=== PATIENT | female | born 1975 | race Caucasian/White ===

== ENCOUNTER 2024-09-27 09:01 | Outpatient (AMB) | payer BC, SELFPAY ==
--- OUTSIDE RECORDS SUMMARY | 2024-09-27 09:21 | XMS_ITS | Patient Health Record ---
Author Organization [facility] Address [address] [place] [id number] Care Team Providers Care Claim Benefit Specialist Name Role Phone GailabigailKeli Primary Care Provider Pepe Rosado [phone] Allergies No Known Allergies Reason For Referral No Information Social History Tobacco Use: Social History Observation Description Date Details (start date - stop date) Never Smoker NA - NA Tobacco Use/Smoking Question Answer Notes Patient is a nonsmoker Alcohol Screen Question Answer Notes Did you have a drink contain ing alcohol in the past year? Yes How often did you have a dri nk containing alcohol in the past year? 2 to 3 times a week (3 points) How many drinks did you have on a typical day when you were drinking in the past year? 3 or 4 drinks (1 point) Points 4 Interpretation Positive Section Notes: Nonsmoker; no sig alcohol Problems Problem Type SNOMED Code ICD Code Onset Dates Problem Status W/U Status Risk Notes Problem Colon cancer screening (553773962) Colon cancer screening (Z12.11) Active confirmed Problem Pre-procedure evaluation check (938118805) Encounter for other preprocedural examination (Z01.818) Active confirmed Problem Irritable bowel syndrome (80524203) IBS (irritable bowel syndrome) (K58.9) Active confirmed Vital Signs Blood pressure diastolic 00 mm Hg 02/16/2024 Height 5 ft 7 in in 02/16/2024 Blood pressure systolic 00 mm Hg 02/16/2024 Weight 203 lbs 02/16/2024 BMI 31.79 kg/m2 02/16/2024 Encounters Encounter Location Date Provider Diagnosis [facility] [address] [place] [address] 02/16/2024 Pepe Mitchell Colon cancer screeni ng Z12.11 ; IBS (irritable bowel syndrome) K58.9 and Encounter for other preprocedural examination Z01.818 [facility] [address] [place] [address] 06/07/2024 Pepe Mitchell Assessments Encounter Date Diagnosis (ICD Code) Assessment Notes Treatment Notes Treatment Clinical Notes Section Notes 02/16/2024 Colon cancer screening (ICD-10 - Z12.11) Overall, Dilan appears quite well. I did recommend a colonoscopy for screening purposes given her age and good clinical appearance. We did review the rationale for this in regard to colon cancer prevention. Full consent was obtained for this, including risks of bleeding and perforation. The procedure will be done with monitored anesthesia care. We did review her irregular bowel movements and history of irritable bowel syndrome. I did recommend that she begin a regimen of 2 Metamucil fiber pills with a lot of water at least once or twice a day to see if that can help improve her bowel movement regularity. I shall also check laboratories for celiac disease given her long-standing history of the irregular bowel movements. I will also obtain colon biopsies to rule out microscopic colitis as well. Dilan was comfortable with this plan. Thank you again for allowing me to participate in Dilan's care. I shall continue to keep you advised of her progress. 02/16/2024 IBS (irritable bowel syndrome) (ICD-10 - K58.9) Try using 2 Metamucil fiber pills with a big glass of water once or twice a day for the IBS and irregular BM's Overall, Dilan appears quite well. I did recommend a colonoscopy for screening purposes given her age and good clinical appearance. We did review the rationale for this in regard to colon cancer prevention. Full consent was obtained for this, including risks of bleeding and perforation. The procedure will be done with monitored anesthesia care. We did review her irregular bowel movements and history of irritable bowel syndrome. I did recommend that she begin a regimen of 2 Metamucil fiber pills with a lot of water at least once or twice a day to see if that can help improve her bowel movement regularity. I shall also check laboratories for celiac disease given her long-standing history of the irregular bowel movements. I will also obtain colon biopsies to rule out microscopic colitis as well. Dilan was comfortable with this plan. Thank you again for allowing me to participate in Dilan's care. I shall continue to keep you advised of her progress. 02/16/2024 Encounter for other preprocedural examination (ICD-10 - Z01.818) Overall, Dilan appears quite well. I did recommend a colonoscopy for screening purposes given her age and good clinical appearance. We did review the rationale for this in regard to colon cancer prevention. Full consent was obtained for this, including risks of bleeding and perforation. The procedure will be done with monitored anesthesia care. We did review her irregular bowel movements and history of irritable bowel syndrome. I did recommend that she begin a regimen of 2 Metamucil fiber pills with a lot of water at least once or twice a day to see if that can help improve her bowel movement regularity. I shall also check laboratories for celiac disease given her long-standing history of the irregular bowel movements. I will also obtain colon biopsies to rule out microscopic colitis as well. Dilan was comfortable with this plan. Thank you again for allowing me to participate in Dilan's care. I shall continue to keep you advised of her progress. Plan Of Treatment Pending Test Test Name Order Date CELIAC PANEL #10 02/16/2024 Future Test Test Name Order Date COLONOSCOPY 02/16/2024 Insurance Providers Payer Name Payer Address Payer Phone Subscriber Number Group Number Insured Name Patient Relationship to Insured Coverage Start Date Coverage End Date [employer] [address] [place] [address] [id number] DILAN HARP Self - patient is the insured Medical (General) History Medical History History ICD Code Denies [place],DM,CVA,Lung disease,renal dise ase IBS--she describes having un dergone a negative flexible sigmoidoscopy in the Surgical History Surgery Date(Month/Year) 3 hernia surgeries--3 Umbilical hernia Carpal tunnel on the right Tubal ligation Endometrial biopsy 02/15/20242024-planned surgery for rem oval of both Fallopian tubes and uterine ablation
--- NOTE | 2024-09-27 09:22 | MHC.OFFWIV ---
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 Pt Tripped and fell down couple of stairs at home yesterday - she landed on her Back and right Ankle/foot got twisted. Reports pain with walking, standing and bending. Denies LOC or hitting head. [facility] Medical History (Updated 09/27/24 @ 10:14 by Sarah Sadler NP) Lumbago with sciatica, right side Muscle strain of right ankle History of endometrial biopsy IBS (irritable bowel syndrome) Hx of sigmoidoscopy Surgical History (Updated 06/06/24 @ 14:13 by Mi Babcock RN) Hx of umbilical hernia repair History of carpal tunnel surgery of right wrist H/O tubal ligation Social History (System 08/11/23 @ 10:04 by Jen Tanner) Patient Tobacco Use Status: Former Tobacco user Patient : No Review of Systems Const All systems reviewed & are unremarkable except as noted in HPI and below Physical Exam Vital Signs: Last Vital Signs Temp 98.0 F 09/27/24 09:24 Pulse 80 09/27/24 09:24 BP 148/100 H 09/27/24 09:24 Pulse Ox 98 09/27/24 09:24 Oxygen Delivery Method Room Air 09/27/24 09:24 BMI result Body Mass Index 31.2 Const General: no acute distress; No comfortable Nutritional Appearance: overweight Orientation/consciousness: patient oriented x3 Back/Spine/Pelvis Back: back tenderness Thoracic/Lumbar Spine: pain with thoraco-lumbar ROM and lumbar spinal tenderness Neuro General: patient oriented x3, gait normal and moves all extremities Psych Speech and movement: Normal speech and movement present Assessment & Plan Assessment & Plan (1) Muscle strain of right ankle: Code(s): S96.911A - Strain of unspecified muscle and tendon at ankle and foot level, right foot, initial encounter Qualifiers: Encounter type: initial encounter Qualified Code(s): S96.911A - Strain of unspecified muscle and tendon at ankle and foot level, right foot, initial encounter Plan: Sprain vs Strain Ankle NSAIDs and Acetaminophen for pain relief. Ice/Hot Elevate the joint Wrapped the Ankle with Shantanu Bandage. (2) Lumbago with sciatica, right side: Code(s): M54.41 - Lumbago with sciatica, right side Qualifiers: Back pain laterality: right Chronicity: acute Qualified Code(s): M54.41 - Lumbago with sciatica, right side Plan: Lower back Muscle STrain/Sprain Ice/hot NSAIDs for pain relief Medications: New ibuprofen 800 mg PO Q8H 30 tabs 0RF M54.41 - Lumbago with sciatica, right side, S96.911A - Strain of unspecified muscle and tendon at ankle and foot level, right foot, initial encounter cyclobenzaprine 10 mg PO TID 30 tabs 0RF 14 days M54.41 - Lumbago with sciatica, right side, S96.911A - Strain of unspecified muscle and tendon at ankle and foot level, right foot, initial encounter Coding Level of Care Code New Pt Level 4 (34467) Diagnoses Muscle strain of right ankle, initial encounter S96.911A Encounter type: initial encounter Acute right-sided low back pain with right-sided sciatica M54.41 Back pain laterality: right Chronicity: acute Time Spent (min) 20
[2024-09-27 09:24] VITALS: BP 148/100; PULSE 80; TEMP 36.7; O2SAT 98; BMI 31.2
== END 2024-09-27 10:29 | disposition home or self-care (01) ==
PROVIDERS: PCP Internal Medicine; Visit Provider Nurse Practitioner Family
DX: S96.911A Strain of unspecified muscle and tendon at ankle and foot level, right foot, initial encounter (principal); M54.41 Lumbago with sciatica, right side

== ENCOUNTER 2025-01-22 07:58 | Outpatient (AMB) | payer BC, SELFPAY ==
[2025-01-22 07:59] VITALS: BP 130/88; PULSE 84; TEMP 36.6; O2SAT 99; BMI 29.0
--- NOTE | 2025-01-22 07:59 | AM.OFFWIN_ITS ---
Intake Vital Signs 01/22/25 07:59 Height 5 ft 7 in Weight 185 lb BMI 29.0 BP 130/88 Blood Pressure Location Rt brachial Position Sitting Pulse 84 Pulse Source Pulse Oximeter Temp 98 F Temp Source Oral Pulse Oximetry (%) 99 Oxygen Delivery Method Room Air Intake Visit Reasons: EP Nausea, Vomiting, Diarrhea Intake Note: Patient presents c/o stomach cramps, nausea, vomiting (alessio colored), unable to keep anything down x5 days. Patient Tobacco Use Status: Former Tobacco user Allergies No Known Allergies Allergy (Verified 01/22/25 08:53) Do you need a note to return to daycare/school/sports/work: No HPI HPI Comments History of Present Illness Details History of Present Illness - The patient is a 49-year-old female pr esenting with symptoms of nausea, vomiting, dizziness, and weakness. - Symptoms began on and have pe rsisted, with the patient unable to keep anything down, including water. - Reports severe nausea, dizziness, vomi ting, and diarrhea with no known exposure to sick individuals. - She has body aches and chills. - She feels weak and is unable to eat or drink. - No fever, cough, or sore throat, but r eports dark urine and infrequent urination. - She has no sick contacts, travel, CP, SOB, abd pain, or melena. Physical Exam General: Cooperative, healthy appearing, comfortable, no acute distress and well developed Orientation: Patient oriented x3 Limitations: No limitations Head: Normal to inspection Ears: Hearing grossly normal bilaterally Nose: Normal external nose present Face and sinus: Normal facial exam Eyes: Appearance normal, both eyes and all related structures Neck: Normal visual inspection and Yes full ROM. No lymphadenopathy noted. Respiratory: Normal respiratory effort and able to speak in complete sentences. Clear to auscultation bilaterally. No w/r/r noted. Cardiovascular: Regular rate and rhythm. Normal S1 and S2. No m/r/g noted. GI: Normal to inspection. Soft to palpation and nontender. No guarding or rebound tenderness noted. Skin: No rashes or lesions noted Patient was informed and verbally consented to the use of an ambient scribe for clinic note documentation during this visit. [facility] Medical History (Updated 09/27/24 @ 10:14 by Sarah Sadler NP) Lumbago with sciatica, right side Muscle strain of right ankle IBS (irritable bowel syndrome) Hx of sigmoidoscopy Surgical History (Updated 06/06/24 @ 14:13 by Mi Babcock RN) History of endometrial biopsy Hx of umbilical hernia repair History of carpal tunnel surgery of right wrist H/O tubal ligation Social History (System 08/11/23 @ 10:04 by Jen Tanner) Patient Tobacco Use Status: Former Tobacco user Review of Systems Const All systems reviewed & are unremarkable except as noted in HPI and below Physical Exam Vital Signs: Last Vital Signs Temp 98 F 01/22/25 07:59 Pulse 84 01/22/25 07:59 BP 130/88 01/22/25 07:59 Pulse Ox 99 01/22/25 07:59 Oxygen Delivery Method Room Air 01/22/25 07:59 BMI result Body Mass Index 29.0 Assessment & Plan Assessment & Plan (1) Nausea vomiting and diarrhea: Code(s): R11.2 - Nausea with vomiting, unspecified; R19.7 - Diarrhea, unspecified Plan Most likely gastroenteritis vs viral illness vs covid vs flu plan - will order resp panel - drink lots of fluids - zofran as needed - BRAT diet as tolerated - Advised the ER if she continues with her symptoms for IV fluids - follow up with PCP Orders: Orders SARS-CoV2/FLU/RSV Today R09.89 - Other specified symptoms and signs involving the circulatory and respiratory systems Medications: New ondansetron 4 mg PO Q8H PRN 10 tabs 0RF nausea and vomiting Coding Level of Care Code Est Pt Level 3 (25657) Diagnoses Nausea vomiting and diarrhea R11.2; R19.7
== END 2025-01-22 08:36 | disposition home or self-care (01) ==
PROVIDERS: PCP Internal Medicine; Visit Provider Physician Assistant Medical
DX: R11.2 Nausea with vomiting, unspecified (principal); R19.7 Diarrhea, unspecified

== ENCOUNTER 2025-01-22 07:58 | Outpatient (REF) | payer BC, SELFPAY ==
[2025-01-22 11:35] LABS: Resp Syncy Virus RNA Qual PCR NEGATIVE (Negative); SARS COV2 PCR INHOUSE NEGATIVE (Negative)
== END 2025-01-22 07:59 | disposition home or self-care (01) ==
LOC: HO.LAB 07:58
PROVIDERS: PCP Internal Medicine; Visit Provider Physician Assistant Medical
DX: Z03.818 Encounter for observation for suspected exposure to other biological agents ruled out (principal)
CPT/HCPCS: 87637

== ENCOUNTER 2025-01-22 08:46 | Emergency (ER) | payer BC, SELFPAY ==
--- NOTE | ~2025-01-22 | XR_ITS ---
EXAMINATION: XR CHEST CLINICAL INFORMATION: weakness COMPARISON: None available. TECHNIQUE: 2 views of the chest were obtained. FINDINGS: The cardiac, hilar, and mediastinal contours are normal. The lungs are clear bilaterally. There is no pneumothorax or pleural effusion. There is no focal osseous or soft tissue abnormality. XR/XR chest 2V IMPRESSION: No active pulmonary disease. Electronically signed by: Arnoldo Genao MD 01/22/2025 09:13 AM CARTER
--- NOTE | 2025-01-22 08:48 | ED_ITS ---
HPI - General Adult General Chief complaint: Nausea/Vomiting/Diarrhea Stated complaint: Nausea Vomiting Diarrhea Time Seen by Provider: 01/22/25 08:47 Source: patient Mode of arrival: ambulatory Limitations: no limitations History of Present Illness ED Provider: Ana Lao PA-C HPI narrative: Patient is a 49 year old assigned female at with a history of IBS presenting to the emergency department today with nausea, vomiting, and feeling generally unwell. Patient states that over the last 5 days she has felt generally unwell with nausea, vomiting, and weakness. Patient denies any other complaints at this time. Onset (ago): day(s) (5) Related Data Previous Rx's ?Medication ?Instructions ?Recorded ondansetron 4 mg disintegrating 4 mg PO Q8H 3 days #9 tabs 01/22/25 tablet ondansetron 4 mg disintegrating 4 mg PO Q8H PRN nausea and 01/22/25 tablet vomiting #10 tabs Allergies Allergy/AdvReac Type Severity Reaction Status Date / Time No Known Allergies Allergy Verified 01/22/25 08:53 Review of Systems 2 Constitutional: Constitutional: Reports as per HPI Eyes: Eyes: Reports as per HPI ENT: Reports as per HPI Cardiovascular: Cardiovascular: Reports as per HPI Respiratory: Respiratory: Reports as per HPI Gastrointestinal: Gastrointestinal: Reports as per HPI Genitourinary: Genitourinary: Reports as per HPI Musculoskeletal: Musculoskeletal: Reports as per HPI Integumentary/Breasts: Skin/Breast: Reports as per HPI Neurologic: Reports as per HPI Psychiatric: Psychiatric: Reports as per HPI Endocrine: Endocrine: Reports as per HPI Hematologic/Lymphatic: Hematologic/Lymphatic: Reports as per HPI Allergic/Immunologic: Allergic/Immunologic: Reports as per HPI PMF Past Medical History Attestation statement: The following information was validated with the patient. Source: old records reviewed and nursing notes reviewed Medical History Lumbago with sciatica, right side Muscle strain of right ankle IBS (irritable bowel syndrome) Hx of sigmoidoscopy Surgical History History of endometrial biopsy Hx of umbilical hernia repair History of carpal tunnel surgery of right wrist H/O tubal ligation Social History Social History Alcohol intake: current Alcohol intake frequency: holidays/special occasions only Patient Tobacco Use Status: Former Tobacco user Smoked in Last 30 Days: No Use of substances other than those prescribed or required for medical reasons: No Advance Directives: No Advance Directives Information Provided: Yes Patient : No Physical Exam ED Vital Signs: Vital Signs - 24 hr 01/22/25 08:51 01/22/25 09:26 01/22/25 09:26 Temperature 97.6 F 98.7 F Pulse Rate 78 57 Pulse Rate [Monitor] 57 Respiratory Rate 16 16 Blood Pressure 135/86 Pulse Oximetry 97 99 Oxygen Delivery Method Room Air Room Air 01/22/25 10:40 01/22/25 12:17 Temperature 0 F L Pulse Rate 55 86 Pulse Rate [Monitor] Respiratory Rate 14 16 Blood Pressure 127/77 113/67 Pulse Oximetry 99 98 Oxygen Delivery Method Room Air Room Air BMI result Body Mass Index 28.2 Const General: cooperative, no acute distress, alert and awake Nutritional Appearance: well nourished Orientation/consciousness: patient oriented x3 HENMT Head: Yes normal to inspection and Yes atraumatic Ears: hearing grossly normal bilaterally and external ears normal General nose exam: Normal external nose present, no nasal discharge noted and no epistaxis Face and sinus: Yes normal facial exam, No abrasion and No laceration Mouth: Normal oral and palatal mucosa present, no drooling and no muffled voice Eyes General: appearance normal, both eyes and all related structures Periorbital: periorbital findings normal Eyelids: Yes eyelids normal Conjunctivae: conjunctivae normal Pupils: Equal, round and reactive pupils present EOM: EOMs intact bilaterally Neck Neck: Yes normal visual inspection and Yes full ROM Resp Effort & Inspection: normal respiratory effort and able to speak in complete sentences Neuro General: patient oriented x3, moves all extremities and CN's II-XI intact bilaterally Cranial nerves: Yes Equal, round and reactive pupils present Cognition (Neuro): normal cognition Extrem General: Yes normal to inspection, Yes full ROM and Yes capillary refill normal Psych Appearance: grossly normal Mental Status: mental status grossly normal Affect: normal affect Attitude: cooperative Thought process: Normal thought process present Thought content: Normal thought content present Insight: Good insight present (Psych) Medications Administered Discontinued Medications Generic Name Dose Route Start Last Admin Trade Name Freq PRN Reason Stop Dose Admin Diphenhydramine HCl 25 mg 11/25/25 10:23 01/22/25 10:35 Diphenhydramine Hcl 50 Mg/Ml Vial IVPUSH 01/22/25 10:24 25 mg ONCE ONE Administration Sodium Chloride 1,000 mls @ 999 mls/hr 01/22/25 09:00 01/22/25 12:16 Ns IV 01/22/25 11:00 Infused .Q1H1M TOMMY Infusion Metoclopramide HCl 10 mg 01/22/25 10:23 01/22/25 10:35 Metoclopramide Hcl 10 Mg/2 Ml Vial IVPUSH 01/22/25 10:24 10 mg ONCE ONE Administration Ondansetron HCl 4 mg 01/22/25 08:59 01/22/25 09:20 Ondansetron Hcl 4 Mg/2 Ml Vial IVPUSH 01/22/25 09:00 4 mg ONCE ONE Administration Medical Decision Making Medical Decision Making MDM Narrative: Patient is a 49 year old assigned female at with a history of IBS presenting to the emergency department today with nausea, vomiting, and feeling generally unwell. Patient's physical exam was as noted in the physical exam portion of this note. Patient's blood work was unremarkable. Patient's urine showed no acute process. Patient's chest x-ray showed no acute process. Patient received IV fluids, reglan, benadryl, and zofran which, upon re- evaluation, she stated it helped her symptoms some. Patient's clinical presentation is most consistent with a viral illness vs. .gastroenteritis I explained my physical exam findings as well as all test results to the patient. I answered all questions asked by the patient. I stressed the importance of the patient taking her medication as directed (either prescribed or as the over the counter packaging recommends). I stressed the importance of the patient following up with her primary care provider. I stressed the importance of the patient returning to the emergency department immediately if her symptoms were to worsen or if she were to develop any dizziness, shortness of breath, difficulty breathing, chest pain, blurry vision, loss of vision, nausea, vomiting, abdominal pain, fever, chills, back pain, or any other complaints. Patient verbalized agreement and understanding with this treatment plan and discharge. Differential Diagnosis Differential Diagnoses: The differential diagnosis associated with the presentation includes UTI Pyelonephritis Viral illness Viral gastroenteritis Nausea Vomiting Admission/Observation Consideration of admission/observation: Escalation of care including admission/observation considered Patient would have been admitted to the hospital had her work up had any findings where hospital admission was appropriate and her clinical presentation warranted hospital admission. Lab Data [facility] Lab Attestation statement: I reviewed the patient's lab results. My interpretation of these results are in the [facility] Rationale portion of this note. 01/22/25 09:22 01/22/25 09:22 Labs: Lab Results 01/22/25 01/22/25 Range/Units 09:22 11:20 WBC 8.1 (4.8-10.8) X10*3/uL RBC 4.75 (4.20-5.50) X10*6/uL Hgb 15.2 (12.0-16.0) g/dl Hct 43.7 (37.0-47.0) % MCV 92.0 (80.0-98.0) fL MCH 32.0 (27.0-33.0) pg MCHC 34.8 (31.0-35.0) g/dl RDW 12.6 (11.0-16.0) % Plt Count 309 (160-400) X10*3/uL MPV 10.5 (9.4-12.3) fL Immature Gran % (Auto) 0.2 (0.0-0.4) % Neut % (Auto) 62.2 (45-73) % Lymph % (Auto) 29.6 (20-40) % [place] % (Auto) 7.5 (2-11) % Eos % (Auto) 0.1 (0-4) % Baso % (Auto) 0.4 (0-2) % Lymph # (Auto) 2.4 (1.2-4.9) X10*3/uL [place] # (Auto) 0.6 (0.1-1.2) X10*3/uL Eos # (Auto) 0.0 (0.0-0.4) X10*3/uL Baso # (Auto) 0.0 (0.0-0.2) X10*3/uL Abs Immat Gran (auto) 0.02 (0.00-0.03) X10*3/uL Absolute Neuts (auto) 5.1 (2.0-8.3) x10*3/uL Absolute Nucleated RBC 0.000 (0.0-0.012) X10*3/uL Nucleated RBC % (auto) 0.0 (0.0-0.2) /100WBC Sodium 140 (135-145) mmol/L Potassium 3.4 (3.3-5.1) mmol/L Chloride 104 (96-108) mmol/L Carbon Dioxide 26 (22-29) mmol/L Anion Gap 13 (12-20) BUN 15 (9-16) mg/dL Creatinine 0.71 (0.5-1.4) mg/dL Estim Creat Clear Calc 107.6 Estimated GFR > 60 Random Glucose 95 (60-115) mg/dL Calcium 9.7 (8.4-10.2) mg/dL Magnesium 2.1 (1.6-2.6) mg/dL Total Bilirubin 0.7 (0.0-1.0) mg/dL AST 24 (5-31) U/L ALT 15 (0-31) U/L Alkaline Phosphatase 81 (39-117) U/L Total Protein 7.5 (6.5-8.0) g/dL Albumin 5.0 (3.5-5.0) g/dL Urine Color Yellow Urine Appearance Clear Urine pH 6.0 (5.0-9.0) Ur Specific [place] 1.025 (1.005-1.025) Urine Protein Trace (Neg-Trace) mg/dL Urine Glucose (UA) Negative (Negative) mg/dL Urine Ketones 80 (Negative) mg/dL Urine Blood Negative (Negative) Urine Nitrite Negative (Negative) Ur Leukocyte Esterase Negative (Negative) Influenza Type A (PCR) NEGATIVE (Negative) Influenza Type B (PCR) NEGATIVE (Negative) RSV RNA Qual (PCR) NEGATIVE (Negative) SARS-CoV-2 RNA (RT-PCR) NEGATIVE (Negative) Independent Interpretation I performed an independent interpretation of an: Plain X-Ray Interpretation: My interpretation is in agreement with the radiologist's impression of this imaging study as written below. EXAMINATION: XR CHEST CLINICAL INFORMATION: weakness COMPARISON: None available. TECHNIQUE: 2 views of the chest were obtained. FINDINGS: The cardiac, hilar, and mediastinal contours are normal. The lungs are clear bilaterally. There is no pneumothorax or pleural effusion. There is no focal osseous or soft tissue abnormality. XR/XR chest 2V IMPRESSION: No active pulmonary disease. Electronically signed by: Arnoldo Genao MD 01/22/2025 09:13 AM EST Dictated By: Arnoldo Genao MD Signed By: Electronically signed by Arnoldo Genao MD 01/22/25 0913 Radiology Impression Discussion of test interpretation with radiology: I have reviewed the radiologist's reading. Critical Care Time Critical Care Time Critical Care Time: Yes Total Critical Care Time: 34 Attestation: I spent 34 minutes of Critical Care Time with this patient. This does not include time spent on separately reported billable procedures. Discharge Plan Discharge Clinical Impression: Nausea & vomiting Patient Disposition: Home, Self-Care Instructions: Acute Nausea and Vomiting (DC) Additional Instructions: Your work up today was reassuring that there is no EMERGENT cause for your symptoms. IF you are prescribed home medications and/or you are taking over the counter medications at home - it is very important you continue to do so as prescribed / directed unless told otherwise by a healthcare provider. Follow up with your primary care provider. Do your best to stay well hydrated and rest. Return to the emergency department immediately if your symptoms worsen or if you develop any numbness, tingling, dizziness, shortness of breath, difficulty breathing, chest pain, blurry vision, loss of vision, nausea, vomiting, abdominal pain, fever, chills, back pain, or any other complaints. L If you do not have a primary care provider - call any of the below numbers to establish and follow up with a primary care provider. [facility] ([place]) [phone] [place] [address], [address] [facility] ([address] [place]) [phone] [place] [address], [address] [facility], [address] [facility] ([address] [place]) [phone] [place] [address], [address] [facility], [address] [facility] ([place]) [phone] [place] [address], [address] [facility], [address] [facility] [phone] [address] [facility], [address] Please see the information below about our Patient Portal. If you are not yet enrolled in the [facility] Patient Portal, you will receive an enrollment email invitation following your visit to any [facility] setting. You may also self-enroll in the Patient Portal by visiting our website: [email or web address] The following information is required to access the Patient Portal: - Your [facility] Medical Record Number - Your personal home email address (must match what is in your electronic medical record, Registration staff can assist with this) - Name - Date of Capabilities of the Patient Portal: - Message some providers - View upcoming appointments - Access your health summary, medical history, and visit history - View current conditions and allergies - View procedure and lab results - View your medications, including guidelines, side effects, and precautions - Complete pre-appointment questionnaires requested by your provider - Ready summary reports of your office visits and procedures To access the Patient Portal Mobile Diaz, follow these directions: - Search [employer] in the Diaz Store or Google mobintent Store - Download the Diaz - Search for [facility] - Enter your login/password Prescriptions: New ondansetron 4 mg tablet,disintegrating 4 mg PO Q8H 3 Days Qty: 9 0RF No Action ondansetron 4 mg tablet,disintegrating 4 mg PO Q8H PRN (Reason: nausea and vomiting) Qty: 10 0RF Referrals: Keli Michael MD [Primary Care Provider, Internal Medicine] Stand Alone Forms: Work/School Release Interventions: ED Discharge Assessment Last Done: 01/22/25 12:17 Discharge Date/Time: 01/22/25 12:18 Print Language: Indonesian
[2025-01-22 08:51] VITALS: BP 135/86; PULSE 78; RESP 16; TEMP 36.4; O2SAT 97; BMI 28.2
[2025-01-22 09:26] VITALS: PULSE 57; RESP 16; TEMP 37.1; O2SAT 99
[2025-01-22 09:27] LABS: MANUAL DIFF FLAG NO
[2025-01-22 09:30] LABS: Hematocrit 43.7 % (37.0-47.0); Hemoglobin 15.2 g/dl (12.0-16.0); Imm Gran Abs Auto 0.02 X10*3/uL (0.00-0.03); Imm Gran Pct Auto 0.2 % (0.0-0.4); Lymphocytes Absolute Auto 2.4 X10*3/uL (1.2-4.9); Mean Corpuscular HGB Conc 34.8 g/dl (31.0-35.0); Mean Corpuscular Hemoglobin 32.0 pg (27.0-33.0); Mean Corpuscular Volume 92.0 fL (80.0-98.0); NRBC Abs Auto 0.000 X10*3/uL (0.0-0.012); NRBC Pct Auto 0.0 /100WBC (0.0-0.2); Platelet Count 309 X10*3/uL (160-400); Red Blood Count 4.75 X10*6/uL (4.20-5.50); White Blood Count 8.1 X10*3/uL (4.8-10.8)
[2025-01-22 09:45] LABS: Alanine Aminotransferase 15 U/L (0-31); Albumin Level 5.0 g/dL (3.5-5.0); Alkaline Phosphatase 81 U/L (39-117); Anion Gap 13 (12-20); Aspartate Amino Transferase 24 U/L (5-31); Blood Urea Nitrogen 15 mg/dL (9-16); Calcium 9.7 mg/dL (8.4-10.2); Carbon Dioxide 26 mmol/L (22-29); Chloride 104 mmol/L (96-108); Creatinine Clr Calc Pharmacy 107.6; Estimated Glomerular Filt Rate > 60; Magnesium 2.1 mg/dL (1.6-2.6); Potassium 3.4 mmol/L (3.3-5.1); Sodium 140 mmol/L (135-145); Total Protein 7.5 g/dL (6.5-8.0)
[2025-01-22 10:07] LABS: Resp Syncy Virus RNA Qual PCR NEGATIVE (Negative); SARS COV2 PCR INHOUSE NEGATIVE (Negative)
[2025-01-22 10:40] VITALS: BP 127/77; PULSE 55; RESP 14; O2SAT 99
[2025-01-22 11:33] LABS: Appearance Urine Clear; Glucose Urine UA Negative (Negative); PH 6.0 (5.0-9.0); Specific Gravity - Urine 1.025 (1.005-1.025)
[2025-01-22 12:17] VITALS: BP 113/67; PULSE 86; RESP 16; TEMP -17.7; TEMP 0; O2SAT 98
== END 2025-01-22 12:18 | disposition home or self-care (01) ==
PROVIDERS: Physician Assistant Medical; Emergency Provider Emergency Medicine; PCP Internal Medicine
DX: R53.1 Weakness (principal); R11.2 Nausea with vomiting, unspecified; K58.9 Irritable bowel syndrome, unspecified; Z03.818 Encounter for observation for suspected exposure to other biological agents ruled out
CPT/HCPCS: 71046; 80053; 81003; 83735; 85025; 87637; 96361; 96374; 96375; 99284; J1200; J2405; J2765

== ENCOUNTER → 2025-01-22 08:59 | Outpatient (BNV) | payer BC, SELFPAY | PROVIDERS: PCP Internal Medicine; Visit Provider Radiology Diagnostic Radiology | DX: R53.1 Weakness (principal) | CPT/HCPCS: 71046 ==